=== PATIENT | male | born 1960 ===

== ENCOUNTER 2025-03-04 08:40 | Day surgery (SDC) | payer BC, SELFPAY | END 2025-03-04 12:00 | disposition home or self-care (01) | LOC: GI 08:40 | PROVIDERS: ATTENDING PHYSICIAN Internal Medicine Gastroenterology | DX: Z12.11 Encounter for screening for malignant neoplasm of colon (principal); K57.30 Diverticulosis of large intestine without perforation or abscess without bleeding; K64.8 Other hemorrhoids; R10.13 Epigastric pain; K31.7 Polyp of stomach and duodenum; K22.89 Other specified disease of esophagus; K20.80 Other esophagitis without bleeding; Z86.0100 Personal history of colon polyps, unspecified | CPT/HCPCS: 43239; G0105; 88305 ==